=== PATIENT | female | born 1960 | race Caucasian/White ===

== ENCOUNTER → 2024-04-01 14:44 | Outpatient (REF) | payer OTHER, SELFPAY | LOC: HWEVLT 14:44 | PROVIDERS: ATTENDING PHYSICIAN Radiology Diagnostic Radiology | DX: I83.891 Varicose veins of right lower extremity with other complications (principal) | CPT/HCPCS: 93970 ==

== ENCOUNTER → 2024-07-07 12:32 | Outpatient (REF) | payer OTHER, SELFPAY | LOC: RAD 12:32 | PROVIDERS: ATTENDING PHYSICIAN Otolaryngology Facial Plastic Surgery; FAMILY PHYSICIAN Internal Medicine | DX: K11.23 Chronic sialoadenitis (principal); K11.5 Sialolithiasis | CPT/HCPCS: 70492; Q9967 ==

== ENCOUNTER → 2024-08-19 13:33 | Outpatient (REF) | payer OTHER, SELFPAY | LOC: RAD 13:33 | PROVIDERS: ATTENDING PHYSICIAN Internal Medicine | DX: R91.1 Solitary pulmonary nodule (principal) | CPT/HCPCS: 71260; Q9967 ==

== ENCOUNTER → 2024-09-25 10:51 | Outpatient (REF) | payer OTHER, SELFPAY | LOC: PET 10:51 | DX: R91.1 Solitary pulmonary nodule (principal) | CPT/HCPCS: 78815; A9552 ==